=== PATIENT | male | born 1930 | race Caucasian/White ===

== ENCOUNTER → 2017-07-04 | Outpatient (CLI) | payer MEDICARE, OTHER ==
[~2017-07-04] MED LIST: AMPICILLIN TRI250 MG PO; ANORO ELLIPTA1 EACH INH; AVODART0.5 MG PO; CPAP INH; DELTASONE10 MG PO; FLOMAX0.4 MG PO; LIPITOR10 MG PO; TENORMIN50 MG PO; VALSARTAN-HCTZ1 EACH PO; XARELTO10 MG PO; XARELTO20 MG PO
== END | disposition disaster alternative care site (69) ==
LOC: GRAD 09:23
DX: C61 Malignant neoplasm of prostate (principal)
CPT/HCPCS: A9503